=== PATIENT | female | born 1980 | race African-American/Black ===

== ENCOUNTER 2019-01-22 05:40 | Inpatient (IN) | payer MEDICAID, OTHER ==
[~2019-01-22] VITALS: Ht 165.1 cm; Wt 74.4 kg
[2019-01-22] MEDS ORDERED: SODIUM CHLORIDE 0.9% 1,000 ML IV ONE (06:20)
[2019-01-22] MEDS ORDERED: ONDANSETRON HCL 4MG/2ML INJ IV STA (06:20)
[2019-01-22] MEDS ORDERED: MORPHINE SULFATE 4 MG/ML CPJ (NOT FOR IM USE) IV STA (06:20)
[2019-01-22 06:30] LABS: CLARITY URINE TURBID (CLEAR); COLOR URINE DARK YELLOW (YELLOW); KETONES URINE 3+ (NEGATIVE); LEUKOCYTE ESTERASE URINE 3+ (NEGATIVE); NITRITE URINE NEGATIVE (NEGATIVE); OCCULT BLOOD URINE TRACE (NEGATIVE); PH URINE 5.5 (4.5-8.0); PROTEIN URINE 1+ (NEGATIVE)
[2019-01-22 06:36] LABS: BASOPHILS % 0.3 % (0.0-2.0); EOSINOPHILS % 0.6 % (0.0-5.0); HEMATOCRIT. 34.9 % (36.0-48.0); HEMOGLOBIN. 11.6 g/dL (12.0-16.0); LYMPHOCYTES % 18.2 % (20.0-50.0); MEAN CORPUSCULAR HEMOGLOBIN 27.4 pg (28.0-32.0); MEAN CORPUSCULAR VOLUME 82.1 fL (81.0-99.0); MEAN PLATELET VOLUME 11.5 fl (7.4-10.4); MONOCYTES % 10.1 % (2.0-8.0); NEUTROPHILS % 70.8 % (40.0-76.0); PLATELET 64 x1000/uL (130-400); RED BLOOD CELL COUNT 4.25 mill/uL (4.2-5.4); RED CELL DISTRIBUTION WIDTH 21.6 % (11.6-14.6)
[2019-01-22 06:42] LABS: CHLORIDE 86 mEq/L (98-107)
[2019-01-22 06:43] LABS: PROTHROMBIN TIME 10.7 sec (9.6-11.0)
[2019-01-22 06:53] LABS: HCG SCREEN NEGATIVE
[2019-01-22] MEDS ORDERED: POTASSIUM CHLORIDE 20MEQ TABLET SR PO ONE (07:30)
[2019-01-22] MEDS ORDERED: CEFTRIAXONE 1 G PREMIX 50 ML IV ONE (07:30)
[2019-01-22 08:30] VITALS: BP 113/84
[2019-01-22] MEDS ORDERED: ZOLPIDEM TARTRATE 5MG TABLET PO PRN (08:45)
[2019-01-22] MEDS ORDERED: NITROGLYCERIN 0.4MG TABLET SL SL PRN (08:45)
[2019-01-22] MEDS ORDERED: GUAIFENESIN 200MG/10ML SUGAR FREE UDC PO PRN (08:45)
[2019-01-22] MEDS ORDERED: ACETAMINOPHEN 325MG TABLET PO PRN (08:45)
[2019-01-22] MEDS ORDERED: KETOROLAC 15MG/ML VIAL IV PRN (08:45)
[2019-01-22] MEDS ORDERED: CLONIDINE 0.1MG TABLET PO PRN (08:45)
[2019-01-22] MEDS ORDERED: DIPHENHYDRAMINE 50MG/ML VIAL IV PRN (08:45)
[2019-01-22] MEDS ORDERED: MAGNESIUM/ALUMINUM HYDROXIDE/SIMETHICONE 30ML UDC PO PRN (08:45)
[2019-01-22] MEDS ORDERED: IPRATROPIUM/ALBUTEROL 0.5-3(2.5)MG/3ML NEB INH PRN (08:45)
[2019-01-22 08:49] LABS: ETHANOL BLOOD < 10 mg/dL
[2019-01-22 08:52] LABS: LDL CHOLESTEROL 144 mg/dL (5-100)
[2019-01-22 08:53] LABS: AMYLASE 106 IU/L (25-115)
[2019-01-22 08:54] LABS: HDL CHOLESTEROL 79 mg/dL (40-59)
[2019-01-22] MEDS: MORPHINE SULFATE 2 MG/ML CPJ (NOT FOR IM USE) IV PRN ×4 (09:50→23:04)
[2019-01-22] MEDS: PANTOPRAZOLE SODIUM 40 MG/VIAL IV SCH (10:19)
[2019-01-22] MEDS: TRAMADOL 50MG TABLET PO PRN ×2 (11:05→20:59)
[2019-01-22 12:00] VITALS: BP 109/83
[2019-01-22 14:13] LABS: *AMPHETAMINES SCREEN URINE NEGATIVE (NEGATIVE); *BARBITURATES SCREEN URINE NEGATIVE (NEGATIVE); *BENZODIAZEPINES SCREEN URINE NEGATIVE (NEGATIVE); *COCAINE SCREEN URINE NEGATIVE (NEGATIVE)
[2019-01-22 14:14] LABS: CANNABINOID URINE SCREEN NEGATIVE (NEGATIVE); METHADONE URINE SCREEN NEGATIVE (NEGATIVE); OPIATES URINE SCREEN NEGATIVE (NEGATIVE); PHENCYCLIDINE URINE SCREEN NEGATIVE (NEGATIVE)
[2019-01-22 14:53] VITALS: BP 113/86
[2019-01-22] MEDS: SODIUM CHLORIDE 0.9% 1,000 ML IV SCH ×2 (17:56→17:57)
[2019-01-22 18:53] VITALS: BP 118/86
[2019-01-22 20:00] VITALS: BP 124/87
[2019-01-23] VITALS: BP 115/82
[2019-01-23] MEDS: TRAMADOL 50MG TABLET PO PRN ×3 (03:00→15:33)
[2019-01-23] MEDS: SODIUM CHLORIDE 0.9% 1,000 ML IV SCH (03:00)
[2019-01-23 04:00] VITALS: BP 112/81
[2019-01-23 06:17] LABS: HEMATOCRIT. 31.9 % (36.0-48.0); HEMOGLOBIN. 10.3 g/dL (12.0-16.0); MEAN CORPUSCULAR HEMOGLOBIN 26.8 pg (28.0-32.0); MEAN CORPUSCULAR VOLUME 83.3 fL (81.0-99.0); MEAN PLATELET VOLUME 12.6 fl (7.4-10.4); RED BLOOD CELL COUNT 3.83 mill/uL (4.2-5.4); RED CELL DISTRIBUTION WIDTH 21.3 % (11.6-14.6)
[2019-01-23] MEDS: MORPHINE SULFATE 2 MG/ML CPJ (NOT FOR IM USE) IV PRN ×3 (06:26→20:43)
[2019-01-23 06:29] LABS: CHLORIDE 98 mEq/L (98-107)
[2019-01-23 06:40] LABS: AMYLASE 213 IU/L (25-115)
[2019-01-23 08:00] VITALS: BP 124/76
[2019-01-23 08:29] LABS: PLATELET 43 x1000/uL (130-400)
[2019-01-23] MEDS: PANTOPRAZOLE SODIUM 40 MG/VIAL IV SCH (09:13)
[2019-01-23 09:57] LABS: PLATELET ESTIMATE MARKEDLY DECREASED
[2019-01-23] MEDS ORDERED: POTASSIUM CHLORIDE 20MEQ/PACKET PO SCH (10:00)
[2019-01-23] MEDS ORDERED: KCL 20MEQ/100ML PREMIX 100 ML IV SCH (11:00)
[2019-01-23 12:00] VITALS: BP 113/86
[2019-01-23] MEDS: LEVOFLOXACIN 500MG PREMIX 100 ML IV SCH (13:12)
[2019-01-23] MEDS: SODIUM CHL 0.9% + KCL 20MEQ/L 1,000 ML IV SCH (16:37)
[2019-01-23] MEDS: DOCUSATE SODIUM 100MG CAPSULE PO PRN (16:44)
[2019-01-23 20:00] VITALS: BP 127/88
[2019-01-23] MEDS: FAMOTIDINE 20MG/2ML VIAL IV SCH (20:11)
[2019-01-24] VITALS: BP 129/86
[2019-01-24] MEDS: SODIUM CHL 0.9% + KCL 20MEQ/L 1,000 ML IV SCH ×4 (01:58→22:20)
[2019-01-24 04:00] VITALS: BP 113/82
[2019-01-24] MEDS: MORPHINE SULFATE 2 MG/ML CPJ (NOT FOR IM USE) IV PRN ×2 (05:05→09:07)
[2019-01-24 06:11] LABS: CHLORIDE 101 mEq/L (98-107)
[2019-01-24 06:16] LABS: AMYLASE 97 IU/L (25-115)
[2019-01-24 08:00] VITALS: BP 121/90
[2019-01-24] MEDS: FAMOTIDINE 20MG/2ML VIAL IV SCH ×2 (09:07→20:51)
[2019-01-24] MEDS ORDERED: POTASSIUM CHLORIDE 20MEQ TABLET SR PO NR (10:30)
[2019-01-24] MEDS: LEVOFLOXACIN 500MG PREMIX 100 ML IV SCH (10:48)
[2019-01-24 12:00] VITALS: BP 125/94
[2019-01-24] MEDS: ONDANSETRON HCL 4MG/2ML INJ IV PRN (14:53)
[2019-01-24] MEDS: TRAMADOL 50MG TABLET PO PRN (14:53)
[2019-01-24 16:00] VITALS: BP 116/77
[2019-01-24] MEDS: DOCUSATE SODIUM 100MG CAPSULE PO PRN (16:11)
[2019-01-24 20:00] VITALS: BP 126/96
[2019-01-25] VITALS: BP 114/87
[2019-01-25] MEDS: SODIUM CHL 0.9% + KCL 20MEQ/L 1,000 ML IV SCH ×2 (01:15→08:31)
[2019-01-25] MEDS: ONDANSETRON HCL 4MG/2ML INJ IV PRN (01:43)
[2019-01-25 04:00] VITALS: BP 108/70
[2019-01-25 08:00] VITALS: BP 133/96
[2019-01-25] MEDS: FAMOTIDINE 20MG/2ML VIAL IV SCH (08:31)
[2019-01-25] MEDS: LEVOFLOXACIN 500MG PREMIX 100 ML IV SCH (10:55)
[2019-01-25 11:36] VITALS: BP 130/95
[2019-01-25 12:00] VITALS: BP 130/95
== END 2019-01-25 12:45 | disposition home or self-care (01) | DRG 282 ==
LOC: ER 05:40 → 5WST 08:04 → ENRESERV 08:17
PROVIDERS: ADMIT Internal Medicine; ATTEND Internal Medicine
DX: K85.20 Alcohol induced acute pancreatitis without necrosis or infection (principal); D61.818 Other pancytopenia; E44.0 Moderate protein-calorie malnutrition; D69.59 Other secondary thrombocytopenia; E87.1 Hypo-osmolality and hyponatremia; D63.8 Anemia in other chronic diseases classified elsewhere; E87.6 Hypokalemia; F10.10 Alcohol abuse, uncomplicated; F17.290 Nicotine dependence, other tobacco product, uncomplicated; I10 Essential (primary) hypertension; K76.0 Fatty (change of) liver, not elsewhere classified; Z68.27 Body mass index [BMI] 27.0-27.9, adult
CPT/HCPCS: 36415; 74176; 76705; 80061; 80305; 80320; 81025; 82150; 83036; 83735; 84703; 87077; 96361; 96365; 96375; 99285; C9113; J0696; J1200; J1885; J1956; J2270; J2405; J3480; J3490; J7030; G0480